=== PATIENT | male | born 1960 | race Caucasian/White ===

== ENCOUNTER 2024-12-03 10:45 | Emergency (ER) | payer SELFPAY ==
[~2024-12-03] VITALS: Ht 188 cm; Wt 131.5 kg
[2024-12-03] MEDS ORDERED: ERYT1OIN RIGHTEYE (10:55)
== END 2024-12-03 10:55 | disposition home or self-care (01) ==
LOC: ER 10:45
DX: H01.002 Unspecified blepharitis right lower eyelid (principal)
CPT/HCPCS: 99282